=== PATIENT | female | born 1980 | race Caucasian/White ===

== ENCOUNTER 2023-10-08 11:00 | Emergency (ER) | payer BC, SELFPAY ==
[2023-10-08 11:11] VITALS: BP 127/80
--- NOTE | 2023-10-08 12:07 | ED.GENMED ---
History of Present Illness
General
Chief Complaint: Cough
Source: patient
Exam Limitations: none
Time Seen by Provider: 10/08/23 11:48
Travel History
Have you had any contact with someone who has COVID-19?: No
Do you have any symptoms of coronavirus? Fever > 100 degrees, chills, cough, shortness of breath, sore throat, loss of taste or smell, muscle aches, or headache?: No
History of Present Illness
History of Present Illness:
Patient has had a cough for 7 weeks. Some mild tightness and occasional shortness of breath with this. No hemoptysis. No pleuritic pain no fever. No travel history. No leg pain or leg swelling. She does have 2 small children who go to school
with significant viral exposure.
Past History
Past History
ED Past Medical History: None
Review of Systems
Review of Systems
All Other Systems: Not applicable
Respiratory: Denies hemoptysis
ABD/GI: Reports no symptoms
Phy Exam
Physical Exam
Physical Exam:
GENERAL: Alert and oriented in no apparent distress
EYE: Orbits normal.
NECK: Supple
CARDIAC: Mildly bradycardic and regular. Heart rate 50. No murmur
LUNGS: Mild expiratory wheeze and rhonchi in the bases right greater than left. No respiratory distress. Occasional coarse cough
ABDOMEN: Soft, without focal tenderness or distention
NEUROLOGICAL: Alert and oriented , grossly non-focal
SKIN: Warm and dry, no rash or lesion, no discoloration, skin intact.
MUSCULOSKELETAL: No edema,no deformity.Good color
PSYCH: Normal and appropriate interaction.
Course
Orders/Labs/Results
Orders:
Orders
10/08/23 11:55
IV Insert/Care/Rem.- Treatment PRN
Ipratropium/Albuterol Sulfate [Duoneb] 3 ml INH R NOW ONE
Pulse Ox/cont/shift [RESP] Stat
Quantity: 1
10/08/23 11:56
Electrocardiogram (*1) Stat
Reason for Study: Other
Other Reason for Exam: pneumonia
EKG- Treatment ONCE
Test Result ONCE
10/08/23 12:52
Basic Metabolic Panel Urgent
COVID-19 Antigen Urgent
Source: Nasal Swab
Complete Blood Count/With Diff Urgent
D-Dimer Urgent
HCG, Serum Qualitative Screen Urgent
Influenza A+B Rapid Molecular Urgent
KAMILLA Source: Nasal Swab
Specimen Description:
10/08/23 14:09
CXR2 [CR Chest - 2 Views ] Urgent
Comment:
Reason For Exam: cough
10/08/23 15:09
Doxycycline [Vibramycin] 100 mg PO NOW STA
Abnormal Lab Results
10/08/23
12:52
Plt Count 415 H 10^3/uL
(130-400)
10/08/23 12:52
10/08/23 12:52
Vital Signs
Initial and Last Documented VS:
Initial Vital Signs
Temp Pulse Resp BP Pulse Ox
98.1 F 58 18 127/80 100
10/08/23 11:11 10/08/23 11:11 10/08/23 11:11 10/08/23 11:11 10/08/23 11:11
Last Documented Vital Signs
Temp Pulse Resp BP Pulse Ox
98.0 F 55 16 115/62 99
10/08/23 16:04 10/08/23 16:04 10/08/23 16:04 10/08/23 16:04 10/08/23 16:04
MDM/Problems Addressed
Differential Diagnosis Includes:
Likely ongoing or recurring viral issue with a secondary reactive component. However with prolonged symptoms to consider pulmonary emboli. D-dimer reasonable screen. Workup in progress.
*Radiology
Radiology exam reviewed: preliminary read by ED provider (Negative) and radiology read reviewed (Negative)
*Pulse Oximetry
Patient hypoxic: no
*EKG
Interpreted by ED Provider?: Yes
Interpretation: abnormal
Comparison EKG: no comparison EKG present
Heart Rate: 44
Rate: bradycardiac
Rhythm: sinus
[place]: normal axis
Interval: normal interval
QRS Pattern: normal QRS
Ischemia: no ischemia
*Critical Care Note
Total Time (30-74mins, 75-104mins- exclusive of procedures): Not Applicable
Update Note
Update Note:
Patient's symptom complex consistent with ongoing bronchitis with a reactive airway component. Highly doubt PE. No risk factors. Negative D-dimer. Not hypoxic or tachycardic. No leg swelling or cord. Likely viral but with prolonged symptoms
will cover with Doxy for atypical. Discussed with patient.
ED Attending Note
-
Portions of this chart may have been created with voice recognition software.� Occasional wrong word or��sound alike� substitutions may have occurred due to the inherent limitations of voice recognition software.
Discharge Plan
Departure
Patient Disposition: Home (Routine Discharge)
Date of Disposition: 10/08/23
Time of Disposition: 15:11
Patient with high blood pressure during this ER visit?: No
Discharge Problem:
Prolonged bronchitis
Instructions: Acute Bronchitis, Adult (DC)
Prescriptions:
New
albuterol sulfate [ProAir HFA] 90 mcg/actuation HFA aerosol inhaler
2 puff inhalation Q4HPRN PRN (Reason: shortness of breath) Qty: 8.5 0RF
doxycycline hyclate 100 mg capsule
100 mg PO BID 10 Days Qty: 20 0RF
prednisone 10 mg tablet
10 mg PO DAILY Qty: 30 0RF
Rx Instructions:
5 tablets day 1. 1 less tablet every other day until gone
No Action
Vitamin Tablet Tab
1 tab PO DAILY
ferrous sulfate [FeroSul] 325 MG tablet
325 mg PO DAILY Qty: 90 0RF
Rx Instructions:
begin after successful bm
ibuprofen 600 MG tablet
600 mg PO Q4HPRN PRN (Reason: moderate pain/cramps) Qty: 90 0RF
Referrals:
Kit Blanca MD [Active] - Next open appointment
NONE,* [Family Provider] -
Activity Restrictions/Additional Instructions:
I saw no primary care physician listed. You can follow-up with the pulmonary physician listed with persistent symptoms.
However of course, if your symptoms progress more shortness of breath high fever chest pain please return immediately to the ER
And as discussed, remember the antibiotics will inactivate your control pills
Interventions
Interventions:
*Risk Screen - Suicide Last Done: 10/08/23 12:43
*General Assessment Last Done: 10/08/23 11:11
*Neglect/Abuse Screening Last Done: 10/08/23 11:11
ED- Fall Risk Assessment Last Done: 10/08/23 13:18
*ED COVID-19 Vaccine History Last Done: 10/08/23 13:17
*Nursing Disposition Last Done: 10/08/23 16:04
ED- Pulmonary Assessment Last Done: 10/08/23 13:18
Discharge Date and Time
Discharge Date/Time: 10/08/23 16:05
[2023-10-08 12:42] VITALS: BMI 24.9
[2023-10-08] MEDS: DUONEB 3 ML INH (12:53)
[2023-10-08 13:22] LABS: COVID-19 Antigen Negative (Negative)
[2023-10-08 13:31] LABS: % Eosinophils 4.5 % (0-6); % Immature Granulocytes 0.3 % (0-0.5); % Lymphocytes 32.9 % (20.5-51.1); % Monocytes 5.3 % (1.7-9.3); Absolute Basophils 0.1 10^3/uL (0-0.2); Absolute Eosinophils 0.3 10^3/uL (0-0.7); Absolute Lymphocytes 2.4 10^3/uL (1.2-3.4); Absolute Monocytes 0.4 10^3/uL (0.1-0.6); Absolute Neutrophils 4.1 10^3/uL (1.4-6.5); Hematocrit 38.8 % (37.0-47.0); Hemoglobin 13.4 g/dL (12.0-16.0); Mean Corp Hgb Conc. 34.5 g/dL (33.0-37.0); Mean Corpuscular Hgb 29.9 pg (27.0-31.0); Mean Corpuscular Volume 86.6 fL (81.0-99.0); Mean Platelet Volume 9.2 fL (7.4-10.4); Nucleated Red Blood Cells % 0 %; Platelet Count 415 10^3/uL (130-400); Red Blood Cell Count 4.48 10^6/uL (4.20-5.40); Red Cell Dist. Width 13.7 % (11.5-14.5); White Blood Cell Count 7.3 10^3/uL (4.8-10.8)
[2023-10-08 13:37] VITALS: BP 108/77
[2023-10-08 13:43] LABS: HCG, Serum Qualitative Screen Negative
[2023-10-08 13:46] LABS: Blood Urea Nitrogen 12 mg/dl (7-17); Calcium 9.7 mg/dl (8.4-10.2); Carbon Dioxide 26 mmol/L (22-30); Chloride 101 mmol/L (98-107); Estimated Creatinine Clearance 79 ml/min; Glucose 89 mg/dl (70-99); Potassium 4.6 mmol/L (3.5-5.1); Sodium 136 mmol/L (135-145); eGFR > 60.00
[2023-10-08 14:00] VITALS: BP 111/65
[2023-10-08 14:02] LABS: D-Dimer 0.28 ug/mlFEU (0.00-0.50)
[2023-10-08] MEDS: VIBRAMYCIN 100 MG PO (15:22)
[2023-10-08 16:04] VITALS: BP 115/62
== END 2023-10-08 16:05 | disposition home or self-care (01) ==
LOC: EMR 11:00
PROVIDERS: EMERGENCY PHYSICIAN Emergency Medicine
DX: J40 Bronchitis, not specified as acute or chronic (principal)
CPT/HCPCS: 99283; 94640; 71046; 80048; 84703; 85025; 85379; 87502; 87811; 93005

== ENCOUNTER → 2023-12-26 17:52 | Outpatient (REF) | payer BC, SELFPAY | LOC: WDC 17:52 | PROVIDERS: ATTENDING PHYSICIAN Obstetrics & Gynecology | DX: Z12.31 Encounter for screening mammogram for malignant neoplasm of breast (principal) | CPT/HCPCS: 77063; 77067 ==

== ENCOUNTER → 2024-05-31 08:12 | Outpatient (REF) | payer BC, SELFPAY | LOC: WDC 08:12 | PROVIDERS: ATTENDING PHYSICIAN Obstetrics & Gynecology | DX: R92.30 Dense breasts, unspecified (principal) | CPT/HCPCS: 76641 ==

== ENCOUNTER 2024-09-23 09:02 | Emergency (ER) | payer BC, SELFPAY ==
[2024-09-23 09:12] VITALS: BP 123/72
[2024-09-23 09:31] LABS: % Basophils 0.7 % (0-2); % Eosinophils 1.6 % (0-6); % Immature Granulocytes 0.2 % (0-0.5); % Lymphocytes 44.9 % (20.5-51.1); % Monocytes 5.9 % (1.7-9.3); % Neutrophils 46.7 % (42.2-75.2); Absolute Eosinophils 0.1 10^3/uL (0-0.7); Absolute Lymphocytes 2.5 10^3/uL (1.2-3.4); Absolute Monocytes 0.3 10^3/uL (0.1-0.6); Absolute Neutrophils 2.6 10^3/uL (1.4-6.5); Hematocrit 39.7 % (37.0-47.0); Hemoglobin 13.5 g/dL (12.0-16.0); Mean Corpuscular Hgb 30.1 pg (27.0-31.0); Mean Corpuscular Volume 88.4 fL (81.0-99.0); Mean Platelet Volume 8.8 fL (7.4-10.4); Nucleated Red Blood Cells % 0 %; Platelet Count 338 10^3/uL (130-400); Red Blood Cell Count 4.49 10^6/uL (4.20-5.40); Red Cell Dist. Width 13.1 % (11.5-14.5); White Blood Cell Count 5.5 10^3/uL (4.8-10.8)
[2024-09-23 09:40] LABS: ALT (SGPT) 45 U/L (0-35); AST (SGOT) 38 U/L (14-36); Alkaline Phosphatase 51 U/L (38-126); Blood Urea Nitrogen 8 mg/dl (7-17); Calcium 8.8 mg/dl (8.4-10.2); Carbon Dioxide 24 mmol/L (22-30); Chloride 104 mmol/L (98-107); Glucose 95 mg/dl (70-99); Lipase 209 U/L (23-300); Potassium 4.1 mmol/L (3.5-5.1); Sodium 139 mmol/L (135-145); Total Bilirubin 0.6 mg/dl (0.2-1.3); Total Protein 7.6 g/dl (6.3-8.2); eGFR > 60.00
[2024-09-23 10:00] LABS: Urine Albumin 1+ (Neg - Trace); Urine Bilirubin Negative (Negative); Urine Character Clear (Clear); Urine Color Yellow; Urine Glucose Negative (Negative); Urine Ketone Negative (Negative); Urine Leukocyte Negative (Negative); Urine Nitrite Negative (Negative); Urine Occult Blood Negative (Negative); Urine Urobilinogen Negative (Neg - 1+)
[2024-09-23 11:09] LABS: Urine Amorphous Seen; Urine Urothelial Cell 0-2 /LPF (FEW)
[2024-09-23 11:10] LABS: Urine Red Blood Cell 0-2 /HPF (0-2); Urine White Cell 0-2 /HPF (0-5)
[2024-09-23] MEDS: TORADOL 30 MG IV (11:27)
[2024-09-23 11:32] VITALS: BP 106/68
--- NOTE | 2024-09-23 11:59 | ED.GENMED ---
History of Present Illness
General
Chief Complaint: Abdominal Pain
Source: patient
Time Seen by Provider: 09/23/24 11:04
History of Present Illness
History of Present Illness:
43-year-old female with no significant past medical history presenting to the emergency department for evaluation of left lower quadrant abdominal pain that started this past Monday accompanied with a bloating sensation. Earlier in the week on
Monday patient believes she had the norovirus but reports that after 24 hours the symptoms all got better. Denies any fevers, chills, rigors, nausea, vomiting. She notes her stools have gotten back to usual. Patient notes a family history of
diverticulitis in the past. No other concerns presently. Denies any recent antibiotic use.
Past History
Past History
ED Past Medical History: None
ED Past Surgical History: None
Social History
Tobacco: Non-smoker
Alcohol: None
Drug: None
Personal:
Living: with family
Employment: Employed
Review of Systems
Review of Systems
All Other Systems: ROS reviewed and negative except as documented in HPI and ROS
Phy Exam
Physical Exam
Physical Exam:
GENERAL: Alert , in no apparent distress
EYE: clear conjunctiva b/l
HEAD: NCAT
ENT: o/p clr, mmm.
CARDIAC: Regular rate and rhythm .
LUNGS: Clear breath sounds bilaterally, no acute respiratory distress, no wheezes/rales/rhonchi
ABDOMEN: Soft, mildly tender within the left lower quadrant, no r/g, no cvat, negative Rodriguez sign, no tenderness at McBurney's point
NEUROLOGICAL: Alert and oriented
SKIN: Warm and dry, skin intact.
MUSCULOSKELETAL: No edema, well perfused.
PSYCH: Normal and appropriate interaction.
Scores
Heart Failure Risk
Heart Failure Risk Score: Not Applicable
Heart Score for Chest Pain Patients
STEMI patient?: Not applicable
Withdrawal Assessment of Alcohol
Withdrawal Assessment Completed?: Not applicable
Course
Orders/Labs/Results
Orders:
Orders
09/23/24 09:18
Complete Blood Count/With Diff Urgent
Comprehensive Metabolic Panel Urgent
HCG, Serum Qualitative Screen Urgent
Comment: ADD ON
Lipase Urgent
Urinalysis Reflex To Culture Urgent
Date Specimen was Collected: 09/23/24
Time Specimen was Collected: 09:15
Urine Microscopic Reflex Cult Urgent
09/23/24 11:06
CT Abd/pelvis W Iv Cont Urgent
Comment:
Reason For Exam: LLQ pain
09/23/24 11:11
Ketorolac [Toradol] 30 mg IV NOW STA
09/23/24 12:02
Add On- LAB Urgent
Tests Added?: HCG qual
Abnormal Lab Results
09/23/24
09:18
AST 38 H U/L
(14-36)
ALT 45 H U/L
(0-35)
Urine Albumin (Reflex) 1+ A
(Neg - Trace)
09/23/24 09:18
09/23/24 09:18
Vital Signs
Initial and Last Documented VS:
Initial Vital Signs
Temp Pulse Resp BP Pulse Ox
98.5 F 62 18 123/72 98
09/23/24 09:12 09/23/24 09:12 09/23/24 09:12 09/23/24 09:12 09/23/24 09:12
Last Documented Vital Signs
Temp Pulse Resp BP Pulse Ox
98.5 F 62 18 106/68 98
09/23/24 09:12 09/23/24 09:12 09/23/24 09:12 09/23/24 11:32 09/23/24 09:12
MDM/Problems Addressed
Differential Diagnosis Includes:
Diverticulitis/colitis, renal/ureteral colic, urinary tract infection, ovarian cyst, given description of pain I have less concern for ovarian torsion,
MDM/Problems Addressed:
43-year-old female presenting to the ER for evaluation of left lower quadrant abdominal pain x 2 days. Denies any fevers. Describes pain to be more of a dull cramping sensation presently. Did not take anything for pain but is requesting here.
Toradol ordered. CT ordered. Labs initiated in triage show no leukocytosis. There is very mild AST/ALT elevation which could be reactive due to recent infection. Disposition pending
*Radiology
Radiology exam reviewed: radiology read reviewed
*Pulse Oximetry
Patient hypoxic: no
*Critical Care Note
Total Time (30-74mins, 75-104mins- exclusive of procedures): Not Applicable
Patient Management
Escalation/DeEscalation of care consider admission/obs:
Patient CT scan did not show any acute abnormalities within the abdomen and pelvis. Pain tolerable. Patient remains afebrile, no leukocytosis and no other abnormality seen. Given her menstrual is due within the next couple of days possibility of
small ovarian cyst as cause of pain however my suspicion for torsion is quite low. Continue anti-inflammatories/Tylenol/heating pad as needed for pain. I did provide the patient with a prescription for Augmentin to cover for possible
diverticulitis if symptoms persist over the next 48 hours. Patient aware of return precautions but otherwise stable for discharge home.
ED Attending Note
-
Portions of this chart may have been created with voice recognition software.� Occasional wrong word or��sound alike� substitutions may have occurred due to the inherent limitations of voice recognition software.
Discharge Plan
Departure
Patient Disposition: Home (Routine Discharge)
Date of Disposition: 09/23/24
Time of Disposition: 15:06
Patient with high blood pressure during this ER visit?: No
Discharge Problem:
Abdominal pain
Instructions: Abdominal Pain
Prescriptions:
New
amoxicillin-pot clavulanate 875-125 mg tablet
1 tab PO BID 10 Days Qty: 20 0RF
No Action
Vitamin Tablet Tab
1 tab PO DAILY
ferrous sulfate [FeroSul] 325 MG tablet
325 mg PO DAILY Qty: 90 0RF
Rx Instructions:
begin after successful bm
ibuprofen 600 MG tablet
600 mg PO Q4HPRN PRN (Reason: moderate pain/cramps) Qty: 90 0RF
albuterol sulfate [ProAir HFA] 90 mcg/actuation HFA aerosol inhaler
2 puff inhalation Q4HPRN PRN (Reason: shortness of breath) Qty: 8.5 0RF
doxycycline hyclate 100 mg capsule
100 mg PO BID 10 Days Qty: 20 0RF
prednisone 10 mg tablet
10 mg PO DAILY Qty: 30 0RF
Rx Instructions:
5 tablets day 1. 1 less tablet every other day until gone
Referrals:
NONE,* [Family Provider] -
Interventions
Interventions:
*Risk Screen - Suicide Last Done: 09/23/24 09:12
*General Assessment Last Done: 09/23/24 09:12
*Neglect/Abuse Screening Last Done: 09/23/24 09:12
*ED COVID-19 Vaccine History Last Done: 09/23/24 11:28
XV-Bupwcb-Uqyelkrvgj Assessment Last Done: 09/23/24 11:28
Discharge Date and Time
Print Language: GERMAN
[2024-09-23 13:28] LABS: HCG, Serum Qualitative Screen Negative
[2024-09-23 15:53] VITALS: BP 108/70
== END 2024-09-23 15:54 | disposition home or self-care (01) ==
LOC: EMR 09:02
PROVIDERS: EMERGENCY PHYSICIAN Emergency Medicine
DX: R10.32 Left lower quadrant pain (principal)
CPT/HCPCS: 99284; 96374; 74177; 80053; 81003; 81015; 83690; 84703; 85025; Q9967

== ENCOUNTER → 2024-12-31 12:19 | Outpatient (REF) | payer BC, SELFPAY | LOC: WDC 12:19 | PROVIDERS: ATTENDING PHYSICIAN Obstetrics & Gynecology | DX: Z12.31 Encounter for screening mammogram for malignant neoplasm of breast (principal) | CPT/HCPCS: 77063; 77067 ==

== ENCOUNTER → 2025-05-29 08:44 | Outpatient (REF) | payer BC, SELFPAY | LOC: WDC 08:44 | PROVIDERS: ATTENDING PHYSICIAN Obstetrics & Gynecology | DX: R92.30 Dense breasts, unspecified (principal) | CPT/HCPCS: 76641 ==